=== PATIENT | female | born 1965 | race African-American/Black ===

== ENCOUNTER 2016-07-30 23:35 | Emergency (ER) | payer BC ==
[2016-07-30 21:14] LABS: BASOPHILS 0.2 %; BASOPHILS ABSOLUTE 0.01 10/3/uL (0.0-0.16); EOSINOPHILS ABSOLUTE 0.04 10/3/uL (0.0-0.53); ER CBC TAT 0 Hrs 10 Mins; HEMATOCRIT 38.9 % (36.0-48.0); HEMOGLOBIN 12.7 g/dL (12.0-16.0); IMMATURE GRANULOCYTES 0.2 %; IMMATURE GRANULOCYTES ABSOLUTE 0.01 10/3/uL (0.0-0.11); LYMPHOCYTES ABSOLUTE 1.17 10/3/uL (0.67-4.30); MEAN CORPUS HGB CONC 32.6 g/dL (32.0-36.0); MEAN CORPUSCULAR HEMOGLOB 27.1 pg (26.0-34.0); MEAN PLATELET VOLUME 11.5 fL (9.2-13.0); MONOCYTES 15.3 %; MONOCYTES ABSOLUTE 0.62 10/3/uL (0.21-1.20); NEUTROPHILS 54.3 %; NEUTROPHILS ABSOLUTE 2.19 10/3/uL (2.02-8.40); PLATELET COUNT 217 10/3/uL (150-400); RBC DISTRIBUTION WIDTH 12.9 % (12.0-16.0); RED CELL COUNT 4.69 10/6/uL (4.0-5.6)
[2016-07-30 21:15] LABS: MANUAL DIFF NO %; MEAN CORPUSCULAR VOLUME 82.9 fL (80-100)
[2016-07-30 21:26] LABS: ASCORBIC ACID (UR NOT ORDER) NEG (NEG); BILIRUBIN, URINE NEGATIVE (NEG); ER URINALYSIS TAT 0 Hrs 22 Mins; KETONE, URINE TRACE MG/DL (NEG); LEUKOCYTE ESTERASE(NOT OR NEG (NEG); NITRITE (URINE) NEG (NEG); WBC (NOT ORDERED) (RFLEX) 3 (0-5)
[2016-07-30 21:32] LABS: A/G RATIO 0.8 (0.7-1.9); ALBUMIN 3.7 G/DL (3.5-5.0); BUN (BLOOD UREA NITROGEN) 10 MG/DL (6-23); CALCIUM, SERUM 9.2 MG/DL (8.5-10.4); CHLORIDE, SERUM 98 MMOL/L (96-112); CO2 (CARBON DIOXIDE) 25 MMOL/L (24-34); CREATININE 1.09 MG/DL (0.55-1.02); GFR AFRICAN AMERICAN 69 ML/MIN (>=60); GFR NON AFRICAN AMERICAN 59 ML/MIN (>=60); GLOBULIN 4.5 G/DL (2.5-4.1); SGOT(AST) 15 U/L (5-40); SGPT(ALT) 29 U/L (5-65); SODIUM, SERUM 136 MMOL/L (135-148); TOTAL BILIRUBIN 0.6 MG/DL (0-1.2); TOTAL PROTEIN 8.2 G/DL (6.0-8.5)
[2016-07-30 21:33] LABS: ALKALINE PHOSPHATASE 100 U/L (45-117); GLUCOSE, SERUM 562 MG/DL (60-99); POTASSIUM, SERUM 4.1 MMOL/L (3.5-5.3)
[2016-07-30 21:42] LABS: INFLUENZA A SCREEN NEGATIVE (NEGATIVE); INFLUENZA B SCREEN NEGATIVE (NEGATIVE)
[~2016-07-30 23:35] MED LIST: ACET500CAP PO; ADOXA100 MG PO; AQUAPHOR TOP; AT25 PO; BAC PO; BACTROINT; BACTROINT TOP; BENADRYL IV; CAT1 PO; CAT2; CAT2 PO; CIP5 PO; COMP10B PO; CYCLOSPORINE100 MG PO; DAPSONE25 MG PO; DERMA-SMOOTH; DEXAMETHASONE IV; DOMEBORO T; DSS PO; ENDOCET1 TAB PO; GENGRAF100 MG PO; HYZAAR 50/12.51 TAB PO; IMU PO; INJECTAFER IV; LEVEMIR SC; MAGOX4 PO; MIRALAXPKT PO; MSCONTIN PO; NORV10 PO; NOVLOGPUMP SC; NOVOLOG SC; NOVOPEN SC; OXYCOD PO; P5 PO; PCET PO; PENICILLN VK500 MG PO; PEP20 PO; PERCOCET1 TA4 PO; PR25 PO; PROZ10 PO; REM15 PO; RITUXAN IV; SENOKOTS PO; TRIAMCINOLONE O80 GM; VIB100 PO; VIB50 PO; ZOFRAN8 PO
[2016-07-30 23:44] LABS: ACETONE NEG
[2016-07-30 23:54] LABS: TROPONIN I <0.02 NG/ML (<0.05)
[2016-10-07] MEDS ORDERED: NOVLOGPUMP SC (02:39)
[2016-10-07] MEDS ORDERED: REMERON30 MG PO (02:40)
[2016-10-07] MEDS ORDERED: PERCOCET 10/3251 TAB PO (02:40)
[2016-10-07] MEDS ORDERED: IMU PO (02:41)
[2016-10-07] MEDS ORDERED: MONODOX100 MG PO (02:41)
[2016-10-07] MEDS ORDERED: CAT3 PO (02:41)
[2016-10-07] MEDS ORDERED: PROZ10 PO (02:42)
[2016-10-07] MEDS ORDERED: NORV10 PO (02:42)
[2016-10-07] MEDS ORDERED: APRES25 PO (02:43)
[2016-10-07] MEDS ORDERED: AT25 PO (02:43)
[2016-10-07] MEDS ORDERED: PROMETHAZI6.25 MG/5 PO (02:44)
[2016-10-07] MEDS ORDERED: IMOD PO (02:45)
[2016-10-07] MEDS ORDERED: METROGEL 0.75% V (02:46)
[2016-10-07] MEDS ORDERED: RITUXAN IV (02:47)
[2016-10-07] MEDS ORDERED: CIP5 PO (02:47)
[2016-10-07] MEDS ORDERED: *UNABLE3 (02:50)
[2016-10-07] MEDS ORDERED: COMP10B PO (14:10)
[2016-10-07] MEDS ORDERED: TRANDAT300 PO (14:11)
[2016-10-11] MEDS ORDERED: PERCOCET 10/3251 TAB PO (12:40)
[2016-10-11] MEDS ORDERED: FLUCON150 PO (12:41)
[2016-10-11] MEDS ORDERED: PR25 PO (12:41)
[2016-10-22] MEDS ORDERED: CIP5 PO (18:29)
[2016-10-27] MEDS ORDERED: LANTUSCART SC (13:33)
[2016-10-27] MEDS ORDERED: NOVOLOG SC (13:33)
[2016-10-27] MEDS ORDERED: NOVLOGPUMP SC (13:34)
== END 2016-07-31 02:30 | disposition home or self-care (01) ==
LOC: ER 23:35
PROVIDERS: Hospitalist
DX: J40 Bronchitis, not specified as acute or chronic (principal); I10 Essential (primary) hypertension; E11.65 Type 2 diabetes mellitus with hyperglycemia; Z90.710 Acquired absence of both cervix and uterus; Z90.89 Acquired absence of other organs; Z88.5 Allergy status to narcotic agent; Z79.4 Long term (current) use of insulin; Z79.899 Other long term (current) drug therapy
CPT/HCPCS: 71020; 80053; 81001; 82009; 82962; 84484; 85025; 87040; 87804; 93005; 96374; 99285; A9270-GY